=== PATIENT | female | born 2000 | race Two or more races ===

== ENCOUNTER 2019-09-18 19:35 | Emergency (ER) | payer OTHER ==
[2019-09-18] MEDS ORDERED: NORMAL SALINE 1000 ML 1,000 ML IV ONE ×2 (19:50→21:04)
[2019-09-18] MEDS ORDERED: IBUPROFEN 600 MG TABLET PO ONE (19:50)
[2019-09-18 20:15] LABS: ABSOLUTE LYMPHOCYTES (AUTO) 1.3 10^3/uL (0.5-4.7); ABSOLUTE MONOCYTES (AUTO) 1.6 10^3/uL (0.1-1.4); ABSOLUTE NEUT (AUTO) 14.8 10^3/uL (1.7-8.2); BASOPHILS % (AUTO) 0.2 % (0-2); EOSINOPHILS % (AUTO) 0.1 % (0-6); HEMATOCRIT 41.5 % (36.0-47.0); HEMOGLOBIN 14.2 g/dL (12.0-15.5); LYMPHOCYTES % (AUTO) 7.2 % (13-45); MEAN CORPUSCULAR HEMOGLOBIN 30.1 pg (27.0-33.4); MEAN CORPUSCULAR HGB CONC 34.2 g/dL (32.0-36.0); MEAN CORPUSCULAR VOLUME 88 fl (80-97); MONOCYTES % (AUTO) 8.8 % (3-13); PLATELET COUNT 225 10^3/uL (150-450); RED BLOOD COUNT 4.72 10^6/uL (3.72-5.28); RED CELL DISTRIBUTION WIDTH 12.5 % (11.5-14.0); SEGMENTED NEUTROPHILS % (AUTO) 83.7 % (42-78); TOTAL CELLS COUNTED % (AUTO) 100 %; WHITE BLOOD COUNT 17.6 10^3/uL (4.0-10.5)
[2019-09-18] MEDS ORDERED: DEXAMETHASONE SOD PHOS INJ 10 MG/1 ML VIAL IV ONE (20:15)
[2019-09-18] MEDS ORDERED: CEFTRIAXONE INJ 1000 MG VIAL IV ONE (20:15)
[2019-09-18 20:32] LABS: ALBUMIN 4.4 g/dL (3.5-5.0); ALKALINE PHOSPHATASE 104 U/L (38-126); ANION GAP 13 (5-19); ASPARTATE AMINO TRANSFERASE 31 U/L (14-36); BILIRUBIN,TOTAL 0.5 mg/dL (0.2-1.3); BLOOD UREA NITROGEN 5 mg/dL (7-20); CARBON DIOXIDE 23 mmol/L (22-30); CHLORIDE 98 mmol/L (98-107); GLUCOSE 137 mg/dL (75-110); POTASSIUM 3.5 mmol/L (3.6-5.0); TOTAL PROTEIN 7.9 g/dL (6.3-8.2)
[2019-09-18] MEDS ORDERED: ACETAMINOPHEN 325 MG TABLET PO ONE (20:45)
--- NOTE | 2019-09-18 20:45 | ER Document Report ---
ED General <ROBERTO CHAU - Last Filed: 09/18/19 23:59> <SHAHNAZKIRANTAVIA LAY - Last Filed: 09/19/19 01:52> - General Chief Complaint: Sore Throat Stated Complaint: SORE THROAT Time Seen by Provider: 09/18/19 19:44 Notes: Patient is a 19-year-old female who presents the emergency department with a chief complaint of a sore throat. Patient states that her sore throat started 2 days ago. She also has had a fever. She has been taking Tylenol. Her last dose was 3 hours prior to arrival here in the emergency department. Denies any past medical history. Denies any recent travel. Patient states that she has been staying home. (ROBERTO CHAU) - Related Data Allergies/Adverse Reactions: No Known Allergies Allergy (Unverified 09/18/19 20:13) Past Medical History - General Information source: Patient - Social History Smoking Status: Never Smoker Frequency of alcohol use: None Drug Abuse: None Patient has suicidal ideation: No Patient has homicidal ideation: No <ROBERTO CHAU - Last Filed: 09/18/19 23:59> - Social History Family History: None <ANGELATAVIA - Last Filed: 09/19/19 01:52> Review of Systems <ROBERTO CHAU - Last Filed: 09/18/19 23:59> - Review of Systems Notes: REVIEW OF SYSTEMS: CONSTITUTIONAL : Denies recent illness. Denies recent unintentional weight loss. See HPI. EENT: See HPI. CARDIOVASCULAR: Denies chest pain. RESPIRATORY: Denies shortness of breath, cough, congestion, difficulty breathing, or wheezing. GASTROINTESTINAL: Denies nausea, vomiting, and diarrhea. Denies abdominal pain. Denies constipation. GENITOURINARY: Denies difficulty urinating, burning, blood in urine, urgency or frequency. MUSCULOSKELETAL: Denies neck and back pain. Denies joint pain or swelling. SKIN: Denies rash, itchiness, or lesions HEMATOLOGIC : Denies easy bruising or bleeding. LYMPHATIC: Denies swollen, painful, enlarged glands. NEUROLOGICAL: Denies no numbness or tingling denies weakness. Denies headache. Denies altered mental status. Denies alteration in speech. PSYCHIATRIC: Denies stress, anxiety, alteration in sleep patterns, or depression. All other systems reviewed and negative. (ROBERTO CHAU) Physical Exam <ROBERTO CHAU - Last Filed: 09/18/19 23:59> - Vital signs Vitals: Temp 103 F H 09/18/19 19:36 - Notes Notes: PHYSICAL EXAMINATION: GENERAL: Appears well, healthy, well-nourished, no acute distress. HEAD: Normocephalic, atraumatic. EYES: PERRL, conjunctiva normal, all extraocular movements intact, sclera nonicteric ENT: Moist mucous membranes. Edema/erythema noted to bilateral tonsils. 4+ tonsillar hypertrophy with exudate on left tonsil. NECK: Supple, no noticeable swelling, redness, rash. Normal range of motion. LUNGS: Equal breath sounds bilaterally and clear to auscultation. No wheezes rales or rhonchi. CARDIOVASCULAR: S1-S2, tachycardic, heart rate 160. Radial pulses 2+, normal. ABDOMEN: Normoactive bowel sounds. Soft, nontender, no guarding, no rebound tenderness, and no masses palpated. EXTREMITIES: Normal strength and range of motion, no pitting or edema. No cyanosis. NEUROLOGICAL: Moves all extremities upon command. Strength 5/5 in all extremities. PSYCH: Normal mood, normal affect. SKIN: Warm, dry. No rash, lesions, ulcerations noted. Normal skin turgor. (ROBERTO SORTO) Course - Laboratory Result Diagrams: 09/18/19 19:58 09/18/19 19:58 <ROBERTO CHAU - Last Filed: 09/18/19 23:59> - Laboratory Result Diagrams: 09/18/19 19:58 09/18/19 19:58 <TAVIA MILLER - Last Filed: 09/19/19 01:52> - Re-evaluation Re-evalutation: 09/18/19 22:42 X-ray shows a large ovoid soft tissue density over the hypopharynx at the base of the tongue. Patient's uvula is midline, but she does have very large tonsils. I am worried that there may be a peritonsillar abscess. Patient will be sent for CT of the neck. She has a white count of 17,600 with a left shift. Chemistries show sodium of 133.8, and she received 2 L of IV fluids. Potassium was 3.5 and was replaced with 40 M EQ's of potassium. LFTs are unremarkable. Rapid strep is positive. Patient has been covered with clindamycin and Rocephin. Patient remains tachycardic in the 120s. Although she has a heart rate of 120, it has greatly improved from a heart rate of 160. Blood cultures are pending. 09/18/19 23:58 Report given to MEREDITH Santos. He will follow-up with patient's CT of the neck. Patient's heart rate has significantly improved and is now in the 110s. (ROBERTO CHAU) 09/19/19 01:22 I assumed care of this patient from PATRICIA Campos. CT soft tissue/neck with IV contrast showed a small 1 cm x 1.5 cm peritonsillar abscess with pronounced cellulitis. After reassessing patient her airway is completely patent. I did talk to Dr. Owen, ENT on-call at [facility]. He said because it is a small abscess that clindamycin would most likely be adequate and to add a burst dose of prednisone. He did give me his information for follow-up if necessary. I discussed this with the patient and she is stable for discharge. (TAVIA MILLER) - Vital Signs Vital signs: Temp Pulse Resp BP Pulse Ox 98.6 F 147 H 27 H 134/90 H 98 09/19/19 01:08 09/18/19 19:45 09/18/19 20:46 09/18/19 20:46 09/18/19 20:46 - Laboratory Laboratory results interpreted by me: 09/18/19 09/18/19 19:58 19:58 WBC 17.6 H Lymph % (Auto) 7.2 L Absolute Neuts (auto) 14.8 H Absolute Monos (auto) 1.6 H Seg Neutrophils % 83.7 H Sodium 133.8 L Potassium 3.5 L BUN 5 L Glucose 137 H Discharge <ROBERTO CHAU - Last Filed: 09/18/19 23:59> <TAVIA MILLER - Last Filed: 09/19/19 01:52> - Discharge Clinical Impression: Pharyngitis due to group A beta hemolytic Streptococci, Peritonsillar abscess, Tachycardia Condition: Stable Disposition: HOME, SELF-CARE Additional Instructions: You were seen in the emergency department today for a peritonsillar abscess and for strep throat. You received IV antibiotics here in the emergency department and you will be sent home with a prescription for antibiotics and steroids. Please get them filled first thing this morning and start dosing them. The antibiotic is called clindamycin and you will take 450 mg 3 times per day for 10 days. The steroid is called prednisone and you will take 60 mg once per day for 5 days. If you develop any airway distress or difficulty breathing please immediately return to the emergency department. If you start to have difficulty breathing with a high-pitched inspiratory whistle called stridor immediately come to the emergency department. I spoke with an ENT doctor and he said if you do not see improvement in 24 to 36 hours to call his office on Thursday for follow-up. Information is below: Dr. Ilir Owen [facility] [address] [place], [place] [phone] Prescriptions: Clindamycin HCl [Cleocin 150 mg Capsule] 150 mg PO Q8 #90 capsule
[2019-09-18] MEDS ORDERED: CLINDAMYCIN 600 MG/D5W RTU 600 MG/50 ML RTUPB IV ONE (21:03)
[2019-09-18] MEDS ORDERED: POTASSIUM CHLORIDE 20 MEQ PACKET PO ONE (21:03)
--- NOTE | 2019-09-18 21:48 | RADIOLOGY REPORT (SQ) ---
EXAM DESCRIPTION: Two views of the neck with soft tissue technique. CLINICAL HISTORY: 19 years Female, sore throat COMPARISON: None. FINDINGS: The epiglottis appears normal. There is a diffuse round ovoid density projecting in the hypopharynx at the level of the tongue base. This may represent an enlarged uvula. The larynx appears normal. Trachea is unremarkable. Lung apices are clear. Osseous structures are unremarkable. IMPRESSION: 1. No evidence of epiglottitis. 2. Large ovoid soft tissue density projecting over the hypopharynx at the level of the tongue base. Clinical correlation is needed. This may represent a very large uvula.
--- NOTE | 2019-09-19 00:28 | RADIOLOGY REPORT (SQ) ---
INDICATION: eval peritonsillar abscess?. Pain and swelling COMPARISON: None CORRELATION: None. TECHNIQUE: Contrast enhanced spiral axial CT images were obtained through the neck with multiplanar reconstructions. This exam was performed according to our departmental dose-optimization program, which includes automated exposure control, adjustment of the mA and/or kV according to patient size and/or use of iterative reconstruction techniques. FINDINGS: Examination is not adequate for evaluation of intracranial contents. Nasopharynx oropharynx and hypopharynx demonstrate asymmetric fullness to the tonsils left greater than right. The left tonsil is heterogeneous with a small fluid collection measuring 1 x 1.6 cm, series 3 image 35. The salivary glands are unremarkable. The thyroid is homogeneous. There is no evidence of bulky adenopathy. The lung apices are clear. The upper mediastinum is unremarkable. . IMPRESSION: Tonsillitis. Small left tonsil/peritonsillar abscess measuring 1 x 1.6 cm. There is significant impingement upon the pharynx at this level..
[2019-09-19] MEDS ORDERED: NORMAL SALINE 1000 ML 1,000 ML IV ONE (00:56)
[2019-09-19 02:15] VITALS: BP 125/80
== END 2019-09-19 02:14 | disposition home or self-care (01) ==
LOC: ER 19:35
DX: J36 Peritonsillar abscess (principal); B95.0 Streptococcus, group A, as the cause of diseases classified elsewhere; R00.0 Tachycardia, unspecified
CPT/HCPCS: 99284; 96361; 96375; 96365; 96367; 36415; 87040; 87880; 85025; 87077; 80053; 70360; 70491; J0696; J7030 ×2; J1100; J3490

== ENCOUNTER 2019-10-13 14:10 | Emergency (ER) | payer OTHER ==
--- NOTE | 2019-10-13 14:26 | ER Document Report ---
ED General - General Chief Complaint: Sore Throat Stated Complaint: SORE THROAT Time Seen by Provider: 10/13/19 14:14 Notes: Healthy in 19 oh female presents with sore throat. 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 Yesterday got worse on the right side worse with swallowing. No trouble talking or opening mouth. Has had slightly less p.o. intake since then is taking only Tylenol. Fever shortness of breath cough injection drug use any other major medical problems. - Related Data Allergies/Adverse Reactions: No Known Allergies Allergy (Unverified 09/18/19 20:13) Past Medical History - Social History Smoking Status: Never Smoker Family History: None Patient has homicidal ideation: No Review of Systems - Review of Systems Notes: REVIEW OF SYSTEMS GEN: Denies fever, chills, weight loss ENT: See HPI EYES: Denies blurry vision, eye pain, discharge CV: Denies chest pain, palpitations, edema RESP: Denies cough, shortness of breath, wheezing GI: Denies abdominal pain, nausea, vomiting, diarrhea MSK: Denies joint pain/swelling, edema, SKIN: Denies rash, skin lesions LYMPH: Denies swollen glands/lymph nodes NEURO: Denies headache, focal weakness or numbness, dizziness PSYCH: Denies depression, suicidal or homicidal ideation PHYSICAL EXAMINATION General: No acute distress, well-nourished Head: Atraumatic, normocephalic ENT: Mild exudative pharyngitis bilaterally symmetric uvula midline no edema no trismus normal voice Eyes: Conjunctiva normal, pupils equal, lids normal Neck: No JVD, supple, no guarding CVS: Normal rate, regular rhythm, no murmurs Resp: No resp distress, equal and normal breath sounds bilaterally GI: Nondistended, soft, no tenderness to palpation, no rebound or guarding Ext: No deformities, no edema, normal range of motion in upper and lower ext Back: No CVA or midline TTP Skin: No rash, warm Lymphatic: Right cervical lymphadenopathy noted tender, mild c. GCS 15. Physical Exam - Vital signs Vitals: Temp 98.9 F 10/13/19 14:10 Course - Re-evaluation Re-evalutation: 10/13/19 14:25 Pharyngitis, recurrent Tachycardic, but quite anxious, and there is no fever to suggest sepsis. Her throat looks quite good, but given that she has had bacterial pharyngitis in the past I will treat her with another course of antibiotics. Do not think she needs steroids this time, there is no clinical evidence of a peritonsillar abscess. Stable for outpatient follow-up with [facility]. I have discussed with the patient there likely diagnosis, aftercare plan, follow-up plans and my usual and customary return precautions. They verbalized understanding of this. - Vital Signs Vital signs: Temp Pulse Resp BP Pulse Ox 98.5 F 136 H 18 124/75 99 10/13/19 14:17 10/13/19 14:17 10/13/19 14:17 10/13/19 14:17 10/13/19 14:17 Discharge - Discharge Clinical Impression: Bacterial pharyngitis Condition: Good Disposition: HOME, SELF-CARE Instructions: Sore Throat ([facility]) Additional Instructions: We discussed warm salt water gargle, lozenges, and forced oral hydration with Gatorade and water Prescriptions: Amoxicillin 1 tab PO TID #30 tab
[2019-10-13 15:27] VITALS: BP 119/78
== END 2019-10-13 15:27 | disposition home or self-care (01) ==
LOC: ER 14:10
DX: J02.8 Acute pharyngitis due to other specified organisms (principal); B96.89 Other specified bacterial agents as the cause of diseases classified elsewhere
CPT/HCPCS: 99282